=== PATIENT | male | born 1945 | race Caucasian/White ===

== ENCOUNTER → 2016-10-24 | Outpatient (CLI) | payer MEDICARE ==
[2016-10-24 17:54] LABS: Non-African American GFR(MDRD) >60 (>60 ml/min/1.73 sqM)
== END | disposition home or self-care (01) ==
LOC: LABWHC1 16:51
PROVIDERS: ATTEND Otolaryngology
DX: R42 Dizziness and giddiness (principal); G45.0 Vertebro-basilar artery syndrome
CPT/HCPCS: 36415; 82565

== ENCOUNTER → 2016-10-25 | Outpatient (CLI) | payer MEDICARE ==
--- NOTE | 2016-10-25 12:44 | MR ---
EXAMINATION TYPE: MR brain and iac wo/w con DATE OF EXAM: 10/25/2016 12:17 PM COMPARISON: NONE HISTORY: dizzy, tinnitus, hearing loss T1-weighted sagittal, diffusion, T2, and FLAIR axial views of the brain are submitted. The high-reso lution T2 axial and postcontrast T1 axial and coronal views of the IACs are submitted. There is no pathologic enhancement of the seventh and eighth cranial nerve complex. There is no acou stic neuroma. There are diffuse areas of abnormal signal scattered throughout the white matter bilaterally a patter n which is nonspecific but most typical remote microvascular ischemia. Areas of abnormal signal involving the keenan and left occipital lobe also suggestive of remote ischemi a. There are changes of mild chronic sinusitis. Craniocervical junction is maintained in the sella turci ca has a normal appearance. Mastoid air cells have a normal appearance. IMPRESSION: 1. No evidence of cerebellopontine angle mass or acoustic schwannoma. 2. Degenerative and nonspecific white matter changes most typical remote microvascular ischemia.
--- NOTE | 2016-10-25 13:02 | MR ---
EXAMINATION TYPE: MR angio head wo/neck wo/w con DATE OF EXAM: 10/25/2016 12:06 PM COMPARISON: 12/04/2003 HISTORY: dizzy, tinnitus, hearing loss TECHNIQUE: Utilizing 3-D [id number] intracranial MRA of the [place] was performed. FINDINGS: The vertebrobasilar and carotid systems are patent. There is stable 3.5 mm aneurysm involving the an terior communicating artery. No additional aneurysms identified. Heterogeneous pattern of the carotid siphon and M1 segment of the left MCA may be artifactual related to intracranial vascular occlusive disease. IMPRESSION: 1. 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 2. Heterogeneous pattern of the carotid siphon and M1 segment of the left MCA may be artifactual rela adia to intracranial vascular occlusive disease. EXAMINATION TYPE: MR angio head wo/neck wo/w con DATE OF EXAM: 10/25/2016 12:06 PM COMPARISON: NONE HISTORY: dizzy, tinnitus, hearing loss CONTRAST: Standard multiplanar, multisequence MRI departmental protocol utilizing 20 mL intravenous MultiHance gadolinium contrast. FINDINGS: Vertebral arteries are fairly symmetric in size and patent. Common carotid arteries are patent. Visua lized portions of the origins of the great vessels are patent. The left common carotid artery and int ernal carotid artery demonstrate mild atherosclerotic plaque with no significant stenosis. The right common carotid artery and carotid bifurcation demonstrate moderate atherosclerotic plaque w ith approximate 70% stenosis. IMPRESSION: Atherosclerotic plaque involving the right carotid bifurcation with findings suggestive an approximat e 70% stenosis.
== END | disposition home or self-care (01) ==
LOC: RADMRIMAIN 10:29
PROVIDERS: ATTEND Otolaryngology
DX: I65.21 Occlusion and stenosis of right carotid artery (principal); I72.0 Aneurysm of carotid artery; R90.82 White matter disease, unspecified
CPT/HCPCS: 70544; 70549; 70553; A9577

== ENCOUNTER 2019-04-23 | Emergency (ER) | payer MEDICARE ==
--- NOTE | 2019-04-23 06:48 | ED ---
General Adult HPI - General Chief complaint: ENT Stated complaint: object in ear Time Seen by Provider: 04/23/19 06:25 Source: patient, RN notes reviewed Mode of arrival: ambulatory Limitations: no limitations - History of Present Illness Initial comments: Higinio is a 74-year-old male with a past medical history of hypertension who presents to the emergency department for a chief complaint of foreign body in the left ear. Patient states that he was taking out his hearing aid when he felt the rubber end to come off in his left ear. States he tried to get it out on his own but could not treat this. Denies any other complaints at this time. Denies any pain in the left ear. Denies any changes in hearing. Patient has no other complaints at this time including shortness of breath, chest pain, abdominal pain, nausea or vomiting, headache, or visual changes. - Related Data Allergies Allergy/AdvReac Type Severity Reaction Status Date / Time No Known Allergies Allergy Verified 04/23/19 06:38 Review of Systems ROS Statement: Those systems with pertinent positive or pertinent negative responses have been documented in the HPI. ROS Other: All systems not noted in ROS Statement are negative. Past Medical History Past Medical History: Hypertension History of Any Multi-Drug Resistant Organisms: None Reported Past Surgical History: Bariatric Surgery, Hernia Repair Past Psychological History: No Psychological Hx Reported Smoking Status: Never smoker Past Alcohol Use History: None Reported Past Drug Use History: None Reported General Exam Limitations: no limitations General appearance: alert, in no apparent distress Head exam: Present: atraumatic, normocephalic, normal inspection Eye exam: Present: normal appearance, PERRL, EOMI. Absent: scleral icterus, conjunctival injection, periorbital swelling ENT exam: Present: normal exam, normal oropharynx, mucous membranes moist, TM's normal bilaterally. Absent: normal external ear exam (small rubber object in FB) Neck exam: Present: normal inspection, full ROM. Absent: tenderness, meningismus, lymphadenopathy Respiratory exam: Present: normal lung sounds bilaterally. Absent: respiratory distress, wheezes, rales, rhonchi, stridor Cardiovascular Exam: Present: regular rate, normal rhythm, normal heart sounds. Absent: systolic murmur, diastolic murmur, rubs, gallop, clicks Neurological exam: Present: alert Psychiatric exam: Present: normal affect, normal mood Course Vital Signs 08/01/19 06:35 Temperature 97.7 F Pulse Rate 79 Respiratory 18 Rate Blood Pressure 175/76 O2 Sat by Pulse 97 Oximetry Medical Decision Making - Medical Decision Making 74-year-old male presents to the emergency department for a chief complaint of foreign body present in left ear. States that the small rubber and came off his hearing aid when he was taking it out. States he cannot remove it. On exam there is a small foreign body noted in the left ear canal consistent. . This was easily removed using alligator forceps. No trauma visually's to the eardrum after this occurred, tympanic membrane is intact. Patient is hypertensive, discussed this with him. He will follow-up with his primary care provider for this and has a history of hypertension. He symptomatically. He will return here if he has any worsening symptoms. Disposition Clinical Impression: Foreign body of ear, left Disposition: HOME SELF-CARE Condition: Good Instructions (If sedation given, give patient instructions): Ear Foreign Body (ED) Additional Instructions: Please follow up with primary care in 1-2 days. Please return to the emergency department if you have any worsening symptoms. Is patient prescribed a controlled substance at d/c from ED?: No Referrals: Tyron Hoffman MD [Primary Care Provider] - 1-2 days Time of Disposition: 06:48
== END 2019-04-23 06:50 | disposition home or self-care (01) ==
CPT/HCPCS: 69200; 99283

== ENCOUNTER 2019-04-24 04:54 | Emergency (ER) | payer MEDICARE ==
[2019-04-24 05:07] VITALS: BP 179/76; PULSE 64; RESP 20; TEMP 97.5
--- NOTE | 2019-04-24 05:17 | ED ---
ENT HPI - General Chief complaint: ENT Stated complaint: FB in ear Time Seen by Provider: 04/24/19 05:13 Source: patient Mode of arrival: ambulatory Limitations: no limitations - History of Present Illness Initial comments: 's patient is 74-year-old man who presents with complaint that a part from his hearing aid is lodged in his right ear canal. Patient states he had been in yesterday for the same with the other ear. He believes that the hearing aid is not sized properly for him. Patient denies pain or injury. complaint: foreign body Onset/Timin -: days(s) Location: R ear Improves with: none Worsens with: none - Related Data Allergies Allergy/AdvReac Type Severity Reaction Status Date / Time No Known Allergies Allergy Verified 04/24/19 05:07 Review of Systems ROS Statement: Those systems with pertinent positive or pertinent negative responses have been documented in the HPI. ROS Other: All systems not noted in ROS Statement are negative. ENT: Reports: other (For body right ear canal). Denies: ear pain Neurological: Denies: headache Past Medical History Past Medical History: Hypertension History of Any Multi-Drug Resistant Organisms: None Reported Past Surgical History: Bariatric Surgery, Hernia Repair Past Psychological History: No Psychological Hx Reported Smoking Status: Never smoker Past Alcohol Use History: None Reported Past Drug Use History: None Reported General Exam Limitations: no limitations General appearance: alert, in no apparent distress Head exam: Present: atraumatic, normocephalic Eye exam: Present: normal appearance ENT exam: Present: normal oropharynx, mucous membranes moist, TM's normal bilaterally, normal external ear exam Course Vital Signs 04/24/19 05:03 Temperature 97.5 F L Pulse Rate 64 Respiratory 20 Rate Blood Pressure 179/76 O2 Sat by Pulse 98 Oximetry Medical Decision Making - Medical Decision Making Nursing staff was able to remove the foreign body from the patient's right ear canal while they were triaging him. Disposition Clinical Impression: Foreign body of ear, left Disposition: HOME SELF-CARE Condition: Good Instructions (If sedation given, give patient instructions): Ear Foreign Body (ED) Is patient prescribed a controlled substance at d/c from ED?: No Referrals: Tyron Hoffman MD [Primary Care Provider] - 1-2 days
--- NOTE | 2019-04-27 02:11 | CDI ---
Documentation Clarification OP Dear Remington BECKER MD Please provide specific site of foreign body in ear( discrepancy in clinical impression FDX -fb in left ear, MDM-fb in right ear) & also provide foreign removal complete procedure note. Thank you, Jesus Gray [employer] Maker If you have any questions, please contact [employer] at [phone] [facility]
== END 2019-04-24 05:21 | disposition home or self-care (01) ==
LOC: EC 04:54
DX: T16.1XXA Foreign body in right ear, initial encounter (principal)
CPT/HCPCS: 99282